=== PATIENT | male | born 1965 | race Caucasian/White ===

== ENCOUNTER 2024-10-29 08:42 | Emergency (ER) | payer MEDICAID, SELFPAY ==
[2024-10-29 08:44] VITALS: BMI 26.6
[2024-10-29 08:57] VITALS: BP 146/94; PULSE 98; RESP 16; TEMP 36.7; O2SAT 99
--- NOTE | 2024-10-29 09:07 | XR_ITS ---
Examination: Ribs, right, with PA chest, 5 views Technique: Chest PA, RIBS AP, RPO, LPO, AP coned lower ribs 5 views Exam date and time: October 29, 2024 0916 hours INDICATIONS: Patient fell 2 days ago with injury to the right chest, right rib pain Findings: Normal heart size No pneumothorax Fracture right seventh rib in the midaxillary line without significant displacement No hemothorax IMPRESSION: Acute fracture with minimal offset right seventh rib
--- NOTE | 2024-10-29 09:10 | PD.EDFALL ---
ED Fall Injury RME/HPI General Chief Complaint: Fall Stated Complaint: FELL IN A HOLE, R) RIBS PAINFUL Time Seen by Provider: 10/29/24 08:57 Source: patient Arrival date/time: 10/29/24 08:42 59-year-old male with a history of hypertension presents to the emergency room with a chief complaint of pain and tenderness to his right sided rib cage. Patient states he was mowing his lawn, tripped on a pothole and fell on his ribs. Mode of arrival: ambulatory Limitations: no limitations Related Data Previous Rx's ?Medication ?Instructions ?Recorded sertraline 50 mg tablet 50 mg PO QDAY #30 tabs 04/23/24 carvedilol 6.25 mg tablet 6.25 mg PO BID #60 tabs 06/04/24 ibuprofen 600 mg tablet 600 mg PO Q8H PRN fever or pain 10/29/24 #20 tabs Allergies Allergy/AdvReac Type Severity Reaction Status Date / Time No Known Allergies Allergy Verified 10/29/24 08:47 Review of Systems Review of Systems Systems Reviewed: All systems reviewed, normal except as documented Constitutional Constitutional: Reports system reviewed and no additional complaints, except as documented, Denies fatigue, Denies fever(s), Denies headache(s) and Denies weakness Eyes Eyes: Reports system reviewed and no additional complaints, except as documented, Denies blurry vision and Denies change in vision ENT Ears, Nose, Mouth, and Throat: Reports system reviewed and no additional complaints, except as documented, Denies otalgia, Denies headache(s), Denies nasal congestion, Denies throat swelling and Denies vertigo Cardiovascular Cardiovascular: Reports system reviewed and no additional complaints, except as documented, Denies chest pain, Denies dyspnea and Denies dyspnea on exertion Respiratory Respiratory: Reports system reviewed and no additional complaints, except as documented, Denies chest congestion, Denies cough, Denies dyspnea, Denies dyspnea on exertion and Denies wheezing Gastrointestinal Gastrointestinal: Reports system reviewed and no additional complaints, except as documented, Denies abdominal pain, Denies cramping, Denies nausea and Denies vomiting Genitourinary Genitourinary: Reports system reviewed and no additional complaints, except as documented, Denies dysuria and Denies hematuria Musculoskeletal Musculoskeletal: Reports system reviewed and no additional complaints, except as documented and Denies back pain Integumentary/Breasts Skin/Breast: Reports system reviewed and no additional complaints, except as documented and Denies wounds Neurologic Neurologic: Reports system reviewed and no additional complaints, except as documented, Denies confusion, Denies headache(s), Denies lack of coordination, Denies vertigo and Denies weakness Psychiatric Psychiatric: Reports system reviewed and no additional complaints, except as documented, Denies anxiety, Denies confusion, Denies depression, Denies paranoia, Denies suicidal ideation and Denies tactile hallucinations Endocrine Endocrine: Reports system reviewed and no additional complaints, except as documented and Denies fatigue Hematologic/Lymphatic Hematologic/Lymphatic: Reports system reviewed and no additional complaints, except as documented and Denies lymphadenopathy Allergic/Immunologic Allergic/Immunologic: Reports system reviewed and no additional complaints, except as documented, Denies throat swelling, Denies urticaria and Denies wheezing ED Exam General Limitations: Present no limitations General appearance: Present alert and in no apparent distress Head Head exam: Present atraumatic Eye Eye exam: Present normal appearance, PERRL and EOMI ENT ENT exam: Present normal exam, normal oropharynx and mucous membranes moist Neck Neck exam: Present normal inspection, full ROM and trachea midline Chest Chest inspection: Present normal inspection, symmetric chest wall rise and tenderness Expanded Chest Exam Trauma: Absent crepitus, laceration, abrasion, wound or penetrating wound Breast: right: tenderness Respiratory Respiratory exam: Present normal lung sounds bilaterally; Absent respiratory distress, wheezes, stridor, accessory muscle use or prolonged expiratory phase Cardiovascular Cardiovascular exam: Present regular rate, normal rhythm and normal heart sounds; Absent tachycardia Abdominal Exam Abdominal exam: Present soft and normal bowel sounds Extremities Exam Extremities exam: Present normal inspection and full ROM Back Exam Back exam: Present normal inspection and full ROM Neurological Exam Neurological exam: Present alert, oriented X3 and CN II-XII intact Psychiatric Psychiatric exam: Present normal affect and normal mood Skin Skin exam: Present warm, dry, intact and normal color Course Quality Measures none Orders Category Date Time Status XR ribs RT min 3V w CXR1V Stat Exams 10/29/24 09:07 Completed HYDROcodone*/APAP 5/325 [Anderson 5/325] Med 10/29/24 10:05 Discontinued 1 tab PO X1 ONE Vital Signs Vital signs: Vital Signs Temperature 98.0 F 10/29/24 08:57 Pulse Rate 98 10/29/24 08:57 Respiratory Rate 16 10/29/24 08:57 Blood Pressure 146/94 H 10/29/24 08:57 Pulse Oximetry (%) 99 10/29/24 08:57 Oxygen Delivery Method Room Air 10/29/24 08:57 O2 saturation 99% within normal limits Fall MDM Narrative MDM Narrative:: 59-year-old male with a history of hypertension presents to the emergency room with a chief complaint of pain and tenderness to his right sided rib cage and pain with inspiration. Patient states he was mowing his lawn, tripped on a pothole and fell on his ribs. Patient is hemodynamically stable. He is not tachycardic not tachypneic and O2 saturation is 99% on room air. Lung sounds are clear bilaterally there is no wheezing there is no abnormal breath sounds. Patient does have some point tenderness to his right sided rib cage with palpation. X-ray of his ribs were completed and show an acute fracture with minimal offset to the right seventh rib. There is no pneumothorax hemothorax or any significant displacement. Patient was discharged and educated to follow-up with primary care provider in the next 24 to 48 hours and return to the emergency room for any evidence of worsening signs or symptoms Patient data External records reviewed:: [facility] previous records Clinical information provided by:: patient Social determinants that could affect healthcare access:: none Patient has the following chronic illnesses:: No chronic illness How is presenting disease/condition affected by chronic disease/condition?: no chronic disease Evaluation data The following diagnostics were reviewed and interpreted by me:: lab results and radiology exam(s) Lab and/or radiology exams considered but not ordered:: N/A Interpretation Summary: X-ray ribs-Findings: Normal heart size No pneumothorax Fracture right seventh rib in the midaxillary line without significant displacement No hemothorax IMPRESSION: Acute fracture with minimal offset right seventh rib Medications / Prescriptions Medications or Prescriptions considered but not ordered:: Medication given Medication administrations:: Medication Administration History Discontinued Medications Hydrocodone Bitart/Acetaminophen (Hydrocodone/Apap 5/325 Tablet) 1 tab PO X1 ONE Stop: 10/29/24 10:06 Last Admin: 10/29/24 10:15 Dose: 1 tab Documented By: BD Medication given Consultations Consultation(s) initiated? (list below): No Diagnosis Fall Differential Diagnosis: other (Rib contusion/rib fracture/pneumothorax/hemothorax) Most likely diagnosis given after review of the tests above:: Rib fracture Admission Indicated Admission indicated?: not indicated Admission Request Was there a request for admission?: No Disposition Plan Disposition Plan: Discharge Discharge Attestation Discharge Attestation: The patient and all family members were given an opportunity to ask questions and understood the discharge instructions. Discharge instructions specifically effects, indications for sooner follow up or return to the emergency department, and the expected course of current diagnosis. Patient condition: Stable Discharge Plan Plan Patient Disposition: HOME (Self Care) Disposition Comment: Stable Prescriptions/Referrals Prescriptions/Med Rec: New ibuprofen 600 mg tablet 600 mg PO Q8H PRN (Reason: fever or pain) Qty: 20 0RF No Action sertraline 50 mg tablet 50 mg PO QDAY Qty: 30 2RF carvedilol 6.25 mg tablet 6.25 mg PO BID Qty: 60 3RF Referrals: No Primary/Family,Physician [Primary Care Provider] - In 1 week Problem List Clinical Impression: Closed rib fracture Patient/Caregiver Discharge Instructions Education Materials: ED Rib Fracture Additional Instructions: Please follow-up with your primary care provider in the next 24 to 48 hours. You have a rib fracture to your seventh rib. Please follow-up with the primary care provider as a referral to an media relations specialist may be indicated for further management. For any evidence of worsening signs or symptoms such as shortness of breath, increased pain, inadequate pain control, fever, cough return to the emergency room. Print Language: Guatemalan Stand Alone Forms: Eunice Award Info., Patient Portal Info Letter PA/RACHEL Supervising Physician RAZIA/RACHEL Supervising Physician: Dr Hernandez
[2024-10-29] MEDS: HYDROcodone/APAP 5/325 TABLET 1 TAB PO (10:15)
== END 2024-10-29 10:17 | disposition home or self-care (01) ==
PROVIDERS: Emergency Provider Emergency Medicine
DX: S22.31XA Fracture of one rib, right side, initial encounter for closed fracture (principal); W17.2XXA Fall into hole, initial encounter; Y93.H2 Activity, gardening and landscaping
CPT/HCPCS: 71101; 99283; A9270

== ENCOUNTER 2024-11-04 13:44 | Outpatient (AMB) | payer MEDICAID, SELFPAY ==
[2024-11-04 13:50] VITALS: BP 116/82; PULSE 107; RESP 16; TEMP 36.8; O2SAT 97; BMI 25.9
--- NOTE | 2024-11-04 13:50 | ACNOTE_ITS ---
Vital Signs 11/04/24 13:50 Height 1.75 m Height Method Stated Weight 79.549 kg Weight Measurement Method Standing Scale BMI 25.9 BP 116/82 Blood Pressure Source Automatic Cuff Blood Pressure Location Left Upper Arm Position Sitting Respiration 16 Pulse 107 H Pulse Source Monitor Temp 98.2 F Temp Source Temporal Artery Scan Pulse Oximetry (%) 97 Oxygen Delivery Method Room Air Allergies/Meds Allergies & Medications Allergies No Known Allergies Allergy (Verified 11/04/24 13:51) Medication Reconciliation sertraline 50 mg tablet 50 mg PO QDAY #30 tabs 04/23/24 [Rx Confirmed 11/04/24] carvedilol 6.25 mg tablet 6.25 mg PO BID #60 tabs 06/04/24 [Rx Confirmed 11/04/24] ibuprofen 600 mg tablet 600 mg PO Q8H PRN fever or pain #20 tabs 10/29/24 [Rx Confirmed 11/04/24] pantoprazole 40 mg tablet,delayed release 40 mg PO QDAY 2 weeks #14 tabs 11/04/24 [Rx] MA Intake Visit Data Collection New Patient or Established: Established Patient (seen at [facility] within 3 years) Seen by Clinical Staff ONLY (RN/MA): No Pain Present Currently: No Pain scale:: 0 Pain Scale Used: Anglin-Ken/Numerical Drying Frame Operator Required: No PCP or OBGYN visit in last 3 months: No Hx Now: No Do You Feel Safe at Home: Yes Authorities Contacted: N/A Smoking Status Smoking Status: Current every day smoker Cessation Counseling Provided: GERMAIN was advised that quitting smoking is the single most important factor to protect the health of themselves and their family. Discussed the benefits of quitting smoking with patient. Encouraged patient to quit smoking and provided Cessation assistance materials and resources. Tobacco Use: Cigarette Years smoked: 20 Are you interested in quitting?: No Immunization / Flu Flu Vaccine in the Last 12 Months: No Flu Vaccine Exclusion Criteria: No Exclusion Criteria Past Medical History Past Medical History NEUROLOGIC: Negative Neurological Disorders, Seizures or Migraine CARDIAC: Positive Hypertension; Negative Cardiac Disorders or Congestive Heart Failure RESPIRATORY: Positive Asthma and Pneumonia; Negative Chronic Obstructive Pulmonary Disease (COPD) GASTROINTESTINAL: Positive Gastrointestinal Disorders, Diverticulitis, Diverticulosis, Hiatal Hernia, Gastroesophageal Reflux Disease and Obesity; Negative Hepatitis GENITOURINARY: Negative Genitourinary Disorders or Renal Disease MUSCULOSKELETAL: Positive Arthritis and Gout ENDOCRINE: Negative Endocrine Disorders, Diabetes Mellitus Type 1 or Diabetes M ellitus Type 2 HEMATOLOGIC: Negative Blood Disorders or Sickle Cell Disease PSYCHO/SOCIAL: Positive Recreational Drug Use (MJ) OTHER HISTORY: Positive Hospitalization (Pneumonia), Mumps and Cancer; Negative Autoimmune Disease, Down Syndrome, Developmental Delay, Shingles, Falls, Blood Transfusions, Blood Transfusion Reaction, Anesthesia Reactions, Organ Transplant, Chemotherapy, Radiation Therapy, Hyperbaric Therapy, MRSA, VRSA, Vancomycin-Resistant Enterococci, Human Immunodeficiency Virus (HIV), Chicken Pox, Measles, Rubella (Italian Measles), Pertussis or Clostridium Difficile Family History FAMILY HISTORY: Positive Family Respiratory Disorders, Family Cardiac Disorders, Family Gastrointestinal Problems, Family Cancer and Family Surgery; Negative Family Psychiatric Problems or Family Anesthesia Reaction Surgical History SURGICAL: Negative Organ Transplant Social History SMOKING STATUS: Smoking status: Current every day smoker PACK YEARS: Pack-Years: 40 SECOND HAND EXPOSURE: second hand exposure: Yes ALCOHOL: Alcohol Intake: Former ALCOHOL FREQUENCY: Alcohol Intake Frequency: holidays/special occasions only HOUSING: Housing: House LIVES WITH: Lives With: Spouse Patient Mindy Perrin Social History Living Situation History Housing: House Housing Other:: Patient lives with Leila Tobacco History Smoking Status: Current every day smoker Packs per Day: 1 Pack-Years: 40 Second Hand Smoke Exposure: Yes Alcohol History Alcohol Intake: Former Alcohol Intake Frequency: holidays/special occasions only Substance Use History Substance Use: marijuana daily Domestic Abuse History Do You Feel Safe at Home: Yes Review of Systems Report any current symptoms Only answer those that you have currently: Past Medical History Past Medical History Have you ever been diagnosed with any of the following: Neurological Problems Seizures: No Migraine: No Cardiology Problems Congestive Heart Failure: No Hypertension: Yes Respiratory Problems Chronic Obstructive Pulmonary Disease (COPD): No Asthma: Yes Pneumonia: Yes Stomache/Intestinal Problems Hepatitis: No Diverticulitis: Yes Diverticulosis: Yes Hiatal Hernia: Yes Gastroesophageal Reflux Disease: Yes Obesity: Yes Genital/Urinary Problems Renal Disease: No Musculoskeletal Problems Arthritis: Yes Gout: Yes Endocrine Problems Diabetes Mellitus Type 1: No Diabetes Mellitus Type 2: No Blood Problems Sickle Cell Disease: No Psychologic Problems Recreational Drug Use: Yes (MJ) Other Problems Hospitalization: Yes (Pneumonia) Autoimmune Disease: No Down Syndrome: No Developmental Delay: No Shingles: No Falls: No Blood Transfusions: No Blood Transfusion Reaction: No Anesthesia Reactions: No Organ Transplant: No Chemotherapy: No Radiation Therapy: No Hyperbaric Therapy: No MRSA: No VRSA: No Vancomycin-Resistant Enterococci: No Human Immunodeficiency Virus (HIV): No Chicken Pox: No Measles: No Mumps: Yes Rubella (Italian Measles): No Pertussis: No Clostridium Difficile: No Cancer: Yes History of Present Illness HPI Narrative This 58 year old male with history of diverticulosis/divericulitis s/p descending colectomy with transverse colon to rectum anastomosis in September [address] Figueroa, hypertension, COPD (no home O2 use), GERD, and substance use (methamphetamine and marijuana) who [facility] referral for abdominal hernia repair, s/p colectomy and dafne removal. The hernia is uncomfortable and non-painful. He has followed up general surgeons Dr Figueroa and Dr Winchester who are unable to surgically repair the hernia, have advised patient seek referral for further management. Patient denies any complaints today, no pain associated with hernia, is able to pass bowel movements without difficulties. Currently <1 PPD, 2 PPD for 40+ years, no alcohol use, occasional marijuana and methamphetamine use. 11/04/24: Patient was seen and examined in the [facility]. Patient came due to failure to get access and referral to general surgeon in [place]. He stated he is frustrated and has been struggling with getting referral for his large ventral hernia seen on the abdomen. Currently, patient denied any pain in the hernia and no signs of obstruction. He is able to pass regular bowel movements and denied any nausea or vomiting. He had a recent fall and ended up getting rib fracture and currently taking ibuprofen for pain management as needed. No gross deformity was seen on the examination. Patient was advised to take Protonix 40 mg along with ibuprofen to prevent formation of stomach ulcers. He was given referral to general surgeon, Dr. Armani jacinto in [place] for evaluation of incisional hernia without obstruction or gangrene and documents were faxed to the clinic. Patient was advised to follow- up in the clinic as needed. Protonix was prescribed. No other refills were given. Review of Systems Review of Systems Systems Reviewed: All systems reviewed, normal except as documented Objective/Exam Narrative Physical exam: GENERAL APPEARANCE: Patient is well-appearing male in no acute distress. HEENT: NC, AT. MMM. EOMI, clear conjunctiva, oropharynx clear. NECK: Supple without lymphadenopathy. No stiffness or restricted ROM. HEART: Sinus tachycardia with regular rhythm, normal S1/S2, no m/r/g LUNGS: CTAB, moving air well. No crackles or wheezes are heard. ABDOMEN: Soft, large ventral hernia seen on the abdomen with active bowel sounds. BACK: No CVAT, no obvious deformity. EXTREMITIES: Without cyanosis, clubbing or edema. NEUROLOGICAL: Grossly nonfocal. Alert and oriented, moving all 4 extremities. CN not formally tested but appear grossly intact. Observed to ambulate with normal gait. Skin: Warm and dry without any rash. Psych: Appropriate mood and affect Assessment & Plan Diagnosis / Problem List (1) Incisional hernia without obstruction or gangrene: Status: Acute Assessment & Plan: ?This 58 year old male with history of diverticulosis/divericulitis s/p descending colectomy with transverse colon to rectum anastomosis in September [address] Figueroa, hypertension, COPD (no home O2 use), GERD, and substance use (methamphetamine and marijuana) came to the clinic for and has a referral for general surgery due to failure to get evaluated by his surgeon at [place]. ? Patient reported that he had a ground-level fall and ended up getting rib fracture and has been taking ibuprofen which has been helpful. ? Examination revealed large bulging nontender ventral hernia with active bowel sounds seen on the abdomen. Plan: ? Patient is referred to general surgeon, Dr. Armani Amador MD in [place] for further evaluation ? Recommended to continue hydration, avoid constipation and take Tylenol as needed (2) Closed rib fracture: Status: Acute Qualifiers: Fracture healing: with routine healing Laterality: right Rib fracture type: single rib Assessment & Plan: ? Patient recently had a ground-level fall ended up having a rib fracture and was already taking ibuprofen which is helping Plan: ? Recommended to take Protonix 40 mg for 2 weeks to prevent formation of gastric ulcer due to high dose ibuprofen usage ? Follow-up recommended as needed Patient was seen and discussed with attending physician, Dr.Watanakunakorn Dr. Dave MD, PGY 2 Orders: Referrals General surgery K43.2 - Incisional hernia without obstruction or gangrene Additional Assessment Internal Medicine Attending Note: Case discussed with and agree with note and management plan of Resident Physician as per Resident's Note above. Issues of concern for present visit are as follows: Follow-up health visit. Patient previously seen for ventral hernia which though nonpainful is uncomfortable. He has been referred to local general surgeons who are unable to surgically repair the hernia. We have tried to refer the patient to [place] and have not been successful. No signs of obstruction. Did have a recent fall with a rib fracture, taking ibuprofen for pain management. We will try making a referral to Dr. Amador in [place]. If this is not successful, we will have to try to find an office in [place]. Plan as noted above. Lavelle Smallwood MD Physician Billing Established Patient Established Patient: E/M Level 3-CPT 58269 Office Procedures [facility] Level of Care Nursing/Assessment Patient Status: Established Patient Nursing Assessment/Reassessment: Medication Reconciliation, Update PMH in EMR and Vital Signs Coordination of Care: Complex Care and Chronic Disease 1-5, Consent,records obtained, informed consent, Education Simp Pt/Fam, 1 Ins Authorization, Ref for ancillary service and Staff clarify orders Established Patient Charge Established Patient Point Assignment: 120 Established Patient Point Charge: EP Level 4 (120-155)
== END 2024-11-04 15:29 | disposition home or self-care (01) ==
LOC: HODAHC 13:44
PROVIDERS: Supervising Provider Internal Medicine; Visit Provider Student in an Organized Health Care Education/Training Program
DX: K43.2 Incisional hernia without obstruction or gangrene (principal); S22.31XA Fracture of one rib, right side, initial encounter for closed fracture; W18.30XA Fall on same level, unspecified, initial encounter
CPT/HCPCS: 99214; G0463

== ENCOUNTER 2024-11-18 14:14 | Outpatient (AMB) | payer MEDICAID, SELFPAY ==
[2024-11-18 14:21] VITALS: BP 148/88; PULSE 98; RESP 18; TEMP 36.6; O2SAT 98; BMI 26.9
--- NOTE | 2024-11-18 14:21 | ACNOTE_ITS ---
Vital Signs 11/18/24 14:21 Height 1.75 m Height Method Stated Weight 82.554 kg Weight Measurement Method Standing Scale BMI 26.9 BP 148/88 H Blood Pressure Source Automatic Cuff Blood Pressure Location Left Upper Arm Position Sitting Respiration 18 Pulse 98 Pulse Source Monitor Temp 97.8 F Temp Source Oral Pulse Oximetry (%) 98 Oxygen Delivery Method Room Air Allergies/Meds Allergies & Medications Allergies No Known Allergies Allergy (Verified 11/18/24 14:22) Medication Reconciliation sertraline 50 mg tablet 50 mg PO QDAY #30 tabs 04/23/24 [Rx Confirmed 11/18/24] carvedilol 6.25 mg tablet 6.25 mg PO BID #60 tabs 06/04/24 [Rx Confirmed 11/18/24] ibuprofen 600 mg tablet 600 mg PO Q8H PRN fever or pain #20 tabs 10/29/24 [Rx Confirmed 11/18/24] albuterol sulfate 90 mcg/actuation aerosol inhaler 1 inh inhalation QID PRN shortness of breath or wheezing #8.5 grams 11/18/24 [Rx] MA Intake Visit Data Collection New Patient or Established: Established Patient (seen at [facility] within 3 years) Seen by Clinical Staff ONLY (RN/MA): No Pain Present Currently: No Pain scale:: 0 Pain Scale Used: [employer] Field Technician Required: No PCP or OBGYN visit in last 3 months: Yes Hx Now: No Do You Feel Safe at Home: Yes Smoking Status Smoking Status: Current every day smoker Cessation Counseling Provided: GERMAIN was advised that quitting smoking is the single most important factor to protect the health of themselves and their family. Discussed the benefits of quitting smoking with patient. Encouraged patient to quit smoking and provided Cessation assistance materials and resources. Tobacco Use: Cigarette Years smoked: 10 Are you interested in quitting?: No Immunization / Flu Flu Vaccine in the Last 12 Months: No Flu Vaccine Exclusion Criteria: No Exclusion Criteria Past Medical History Past Medical History NEUROLOGIC: Negative Neurological Disorders, Seizures or Migraine CARDIAC: Positive Hypertension; Negative Cardiac Disorders or Congestive Heart Failure RESPIRATORY: Positive Asthma and Pneumonia; Negative Chronic Obstructive Pulmonary Disease (COPD) GASTROINTESTINAL: Positive Gastrointestinal Disorders, Diverticulitis, Diverticulosis, Hiatal Hernia, Gastroesophageal Reflux Disease and Obesity; Negative Hepatitis GENITOURINARY: Negative Genitourinary Disorders or Renal Disease MUSCULOSKELETAL: Positive Arthritis and Gout ENDOCRINE: Negative Endocrine Disorders, Diabetes Mellitus Type 1 or Diabetes Mellitus Type 2 HEMATOLOGIC: Negative Blood Disorders or Sickle Cell Disease PSYCHO/SOCIAL: Positive Recreational Drug Use (MJ) OTHER HISTORY: Positive Hospitalization (Pneumonia), Mumps and Cancer; Negative Autoimmune Disease, Down Syndrome, Developmental Delay, Shingles, Falls, Blood Transfusions, Blood Transfusion Reaction, Anesthesia Reactions, Organ Transplant, Chemotherapy, Radiation Therapy, Hyperbaric Therapy, MRSA, VRSA, Vancomycin-Resistant Enterococci, Human Immunodeficiency Virus (HIV), Chicken Pox, Measles, Rubella (Maltese Measles), Pertussis or Clostridium Difficile Family History FAMILY HISTORY: Positive Family Respiratory Disorders, Family Cardiac Disorders, Family Gastrointestinal Problems, Family Cancer and Family Surgery; Negative Family Psychiatric Problems or Family Anesthesia Reaction Surgical History SURGICAL: Negative Organ Transplant Social History SMOKING STATUS: Smoking status: Current every day smoker PACK YEARS: Pack-Years: 40 SECOND HAND EXPOSURE: second hand exposure: Yes ALCOHOL: Alcohol Intake: Former ALCOHOL FREQUENCY: Alcohol Intake Frequency: holidays/special occasions only HOUSING: Housing: House LIVES WITH: Lives With: Spouse Patient Portal Questionaires PHQ-9 PHQ-2 Over the last 2 weeks, how often have you been bothered by any of the following problems? 1. Little interest or pleasure in doing things: not at all 2. Feeling down, depressed, or hopeless: not at all Total score: 0 Depression screen completed yes Social History Living Situation History Housing: House Housing Other:: Patient lives with Leila Venegas Tobacco History Smoking Status: Current every day smoker Packs per Day: 1 Pack-Years: 40 Second Hand Smoke Exposure: Yes Alcohol History Alcohol Intake: Former Alcohol Intake Frequency: holidays/special occasions only Substance Use History Substance Use: marijuana daily Domestic Abuse History Do You Feel Safe at Home: Yes Review of Systems Report any current symptoms Only answer those that you have currently: Past Medical History Past Medical History Have you ever been diagnosed with any of the following: Neurological Problems Seizures: No Migraine: No Cardiology Problems Congestive Heart Failure: No Hypertension: Yes Respiratory Problems Chronic Obstructive Pulmonary Disease (COPD): No Asthma: Yes Pneumonia: Yes Stomache/Intestinal Problems Hepatitis: No Diverticulitis: Yes Diverticulosis: Yes Hiatal Hernia: Yes Gastroesophageal Reflux Disease: Yes Obesity: Yes Genital/Urinary Problems Renal Disease: No Musculoskeletal Problems Arthritis: Yes Gout: Yes Endocrine Problems Diabetes Mellitus Type 1: No Diabetes Mellitus Type 2: No Blood Problems Sickle Cell Disease: No Psychologic Problems Recreational Drug Use: Yes (MJ) Other Problems Hospitalization: Yes (Pneumonia) Autoimmune Disease: No Down Syndrome: No Developmental Delay: No Shingles: No Falls: No Blood Transfusions: No Blood Transfusion Reaction: No Anesthesia Reactions: No Organ Transplant: No Chemotherapy: No Radiation Therapy: No Hyperbaric Therapy: No MRSA: No VRSA: No Vancomycin-Resistant Enterococci: No Human Immunodeficiency Virus (HIV): No Chicken Pox: No Measles: No Mumps: Yes Rubella (Maltese Measles): No Pertussis: No Clostridium Difficile: No Cancer: Yes History of Present Illness HPI Narrative This 58 year old male with history of diverticulosis/divericulitis s/p descending colectomy with transverse colon to rectum anastomosis in September [address] Figueroa, hypertension, COPD (no home O2 use), GERD, and substance use (methamphetamine and marijuana) who presented to the [facility] seeking general surgery referral for abdominal hernia repair, s/p colectomy and dafne removal. The hernia is uncomfortable and non-painful. He has followed up general surgeons Dr Figueroa and Dr Winchester who are unable to surgically repair the hernia, have advised patient seek referral for further management. Patient denies any complaints today, no pain associated with hernia, is able to pass bowel movements without difficulties. Currently <1 PPD, 2 PPD for 40+ years, no alcohol use, occasional marijuana and methamphetamine use. 11/04/24: Patient was seen and examined in the [facility]. Patient came due to failure to get access and referral to general surgeon in [place]. He stated he is frustrated and has been struggling with getting referral for his large ventral hernia seen on the abdomen. Currently, patient denied any pain in the hernia and no signs of obstruction. He is able to pass regular bowel movements and denied any nausea or vomiting. He had a recent fall and ended up getting rib fracture and currently taking ibuprofen for pain management as needed. No gross deformity was seen on the examination. Patient was advised to take Protonix 40 mg along with ibuprofen to prevent formation of stomach ulcers. He was given referral to general surgeon, Dr. Armani Amador in [place] for evaluation of incisional hernia without obstruction or gangrene and documents were faxed to the clinic. Patient was advised to follow- up in the clinic as needed. Protonix was prescribed. No other refills were given. 11/18/24: Patient was seen and examined in the clinic. Patient was feeling well and reported to feel frustrated due to the process of denial for referral to general surgery for evaluation of his ventral hernia. He reported that he does not have any disturbance in the bowel movements or pain but he wants to get evaluated in have elective hernia reduction. Surgeon, Dr. Cao was contacted and he stated that we can do referral for his clinic and once insurance will do authorization he will be happy to see the patient. In case insurance declines we will try for another surgeon, Dr. Robin in time otherwise we will be trying out in [place] for other specialist. He was found to have mild wheezing on auscultation therefore albuterol inhaler was given as needed due to history of asthma. Follow-up in a week. Pending insurance authorization for referral. Review of Systems Review of Systems Systems Reviewed: All systems reviewed, normal except as documented Objective/Exam Narrative Physical exam: GENERAL APPEARANCE: Patient is well-appearing male in no acute distress. HEENT: NC, AT. MMM. EOMI, clear conjunctiva, oropharynx clear. NECK: Supple without lymphadenopathy. No stiffness or restricted ROM. HEART: Sinus tachycardia with regular rhythm, normal S1/S2, no m/r/g LUNGS: CTAB, moving air well. Mild wheezing heard on ausc ABDOMEN: Soft, large ventral hernia seen on the abdomen with active bowel sounds. BACK: No CVAT, no obvious deformity. EXTREMITIES: Without cyanosis, clubbing or edema. NEUROLOGICAL: Grossly nonfocal. Alert and oriented, moving all 4 extremities. CN not formally tested but appear grossly intact. Observed to ambulate with normal gait. Skin: Warm and dry without any rash. Psych: Appropriate mood and affect Assessment & Plan Diagnosis / Problem List (1) Asthma: Status: Acute Qualifiers: Asthma complication type: uncomplicated Asthma persistence: intermittent Asthma severity: mild Qualified Code(s): J45.20 - Mild intermittent asthma, uncomplicated Assessment & Plan: ? Patient does have a history of chronic asthma and related to allergies. He is not in acute asthmatic state. ? Patient appeared to have mild wheezing on examination Plan: ? Recommended to take albuterol inhaler as needed for mild wheezing (2) Incisional hernia without obstruction or gangrene: Status: Acute Assessment & Plan: ?This 58 year old male with history of diverticulosis/divericulitis s/p descending colectomy with transverse colon to rectum anastomosis in September [address] Figueroa, hypertension, COPD (no home O2 use), GERD, and substance use (methamphetamine and marijuana) came to the clinic due to failure to get evaluated by Surgeon ? Examination revealed large bulging nontender ventral hernia with active bowel sounds seen on the abdomen. Plan: ? Referral given for surgeon, Dr. Cao for further evaluation ? Insurance declined evaluation for Dr. Armani Amador MD -Pending insurance auth for referral - F/U in a week Patient was seen and discussed with attending physician, Dr.Watanakunakorn Dr. Dave MD, PGY 2 Orders: Referrals General surgery K43.2 - Incisional hernia without obstruction or gangrene Additional Assessment Internal Medicine Attending Note: Case discussed with and agree with note and management plan of Resident Physician as per Resident's Note above. Issues of concern for present visit are as follows: Follow-up visit. Has still not been able to see surgeon for repair of ventral hernia. Resident physician contacted local general surgeon Dr. Cao who states he will take the patient. We will try to get insurance approval. On examination, mild wheezing, history of asthma. Patient given albuterol inhaler for as needed use. Lavelle Smallwood MD Physician Billing Established Patient Established Patient: E/M Level 3-CPT 43380 Office Procedures [facility] Level of Care Nursing/Assessment Patient Status: Established Patient Nursing Assessment/Reassessment: Medication Reconciliation, Update PMH in EMR and Vital Signs Coordination of Care: Complex Care and Chronic Disease 1-5, Consent,records obtained, informed consent, Education Simp Pt/Fam, Results/Orders obtained and Staff clarify orders Established Patient Charge Established Patient Point Assignment: 90 Established Patient Point Charge: EP Level 3 (80-115)
== END 2024-11-18 14:43 | disposition home or self-care (01) ==
LOC: HODAHC 14:14
PROVIDERS: Supervising Provider Internal Medicine; Visit Provider Student in an Organized Health Care Education/Training Program
DX: K43.2 Incisional hernia without obstruction or gangrene (principal); J45.20 Mild intermittent asthma, uncomplicated
CPT/HCPCS: 99213; G0463

== ENCOUNTER 2024-12-10 10:46 | Outpatient (AMB) | payer MEDICAID, SELFPAY ==
[2024-12-10 10:46] VITALS: BP 143/96; PULSE 104; RESP 18; TEMP 36.6; O2SAT 97; BMI 26.2
--- NOTE | 2024-12-10 10:46 | ACNOTE_ITS ---
Vital Signs 12/10/24 10:46 Height 1.75 m Height Method Stated Weight 80.456 kg Weight Measurement Method Standing Scale BMI 26.2 BP 143/96 H Blood Pressure Source Automatic Cuff Blood Pressure Location Right Upper Arm Position Sitting Respiration 18 Pulse 104 H Pulse Source Monitor Temp 97.8 F Temp Source Temporal Artery Scan Pulse Oximetry (%) 97 Oxygen Delivery Method Room Air Allergies/Meds Allergies & Medications Allergies No Known Allergies Allergy (Verified 12/10/24 10:47) Medication Reconciliation sertraline 50 mg tablet 50 mg PO QDAY #30 tabs 04/23/24 [Rx Confirmed 12/10/24] carvedilol 6.25 mg tablet 6.25 mg PO BID #60 tabs 06/04/24 [Rx Confirmed 12/10/24] ibuprofen 600 mg tablet 600 mg PO Q8H PRN fever or pain #20 tabs 10/29/24 [Rx Confirmed 12/10/24] albuterol sulfate 90 mcg/actuation aerosol inhaler 1 inh inhalation QID PRN shortness of breath or wheezing #8.5 grams 11/18/24 [Rx Confirmed 12/10/24] MA Intake Visit Data Collection New Patient or Established: Established Patient (seen at [facility] within 3 years) Seen by Clinical Staff ONLY (RN/MA): No Pain Present Currently: No Pain scale:: 0 Pain Scale Used: [place]-Ken/Numerical Emulsion Coater Required: No PCP or OBGYN visit in last 3 months: No Hx Now: No Do You Feel Safe at Home: Yes Authorities Contacted: N/A Smoking Status Smoking Status: Current every day smoker Cessation Counseling Provided: GERMAIN was advised that quitting smoking is the single most important factor to protect the health of themselves and their family. Discussed the benefits of quitting smoking with patient. Encouraged patient to quit smoking and provided Cessation assistance materials and resources. Tobacco Use: Cigarette Years smoked: 10 Are you interested in quitting?: No Immunization / Flu Flu Vaccine in the Last 12 Months: No Flu Vaccine Exclusion Criteria: No Exclusion Criteria Past Medical History Past Medical History NEUROLOGIC: Negative Neurological Disorders, Seizures or Migraine CARDIAC: Positive Hypertension; Negative Cardiac Disorders or Congestive Heart Failure RESPIRATORY: Positive Asthma and Pneumonia; Negative Chronic Obstructive Pulmonary Disease (COPD) GASTROINTESTINAL: Positive Gastrointestinal Disorders, Diverticulitis, Diverticulosis, Hiatal Hernia, Gastroesophageal Reflux Disease and Obesity; Negative Hepatitis GENITOURINARY: Negative Genitourinary Disorders or Renal Disease MUSCULOSKELETAL: Positive Arthritis and Gout ENDOCRINE: Negative Endocrine Disorders, Diabetes Mellitus Type 1 or Diabetes Mellitus Type 2 HEMATOLOGIC: Negative Blood Disorders or Sickle Cell Disease PSYCHO/SOCIAL: Positive Recreational Drug Use (MJ) OTHER HISTORY: Positive Hospitalization (Pneumonia), Mumps and Cancer; Negative Autoimmune Disease, Down Syndrome, Developmental Delay, Shingles, Falls, Blood Transfusions, Blood Transfusion Reaction, Anesthesia Reactions, Organ Transplant, Chemotherapy, Radiation Therapy, Hyperbaric Therapy, MRSA, VRSA, Vancomycin-Resistant Enterococci, Human Immunodeficiency Virus (HIV), Chicken Pox, Measles, Rubella (Albanian Measles), Pertussis or Clostridium Difficile Family History FAMILY HISTORY: Positive Family Respiratory Disorders, Family Cardiac Disorders, Family Gastrointestinal Problems, Family Cancer and Family Surgery; Negative Family Psychiatric Problems or Family Anesthesia Reaction Surgical History SURGICAL: Negative Organ Transplant Social History SMOKING STATUS: Smoking status: Current every day smoker PACK YEARS: Pack-Years: 40 SECOND HAND EXPOSURE: second hand exposure: Yes ALCOHOL: Alcohol Intake: Former ALCOHOL FREQUENCY: Alcohol Intake Frequency: holidays/special occasions only HOUSING: Housing: House LIVES WITH: Lives With: Spouse Patient Portal Questionaires PHQ-9 PHQ-2 Over the last 2 weeks, how often have you been bothered by any of the following problems? 1. Little interest or pleasure in doing things: not at all Social History Living Situation History Housing: House Housing Other:: Patient lives with Leila Tobacco History Smoking Status: Current every day smoker Packs per Day: 1 Pack-Years: 40 Second Hand Smoke Exposure: Yes Alcohol History Alcohol Intake: Former Alcohol Intake Frequency: holidays/special occasions only Substance Use History Substance Use: marijuana daily Domestic Abuse History Do You Feel Safe at Home: Yes Review of Systems Report any current symptoms Only answer those that you have currently: Past Medical History Past Medical History Have you ever been diagnosed with any of the following: Neurological Problems Seizures: No Migraine: No Cardiology Problems Congestive Heart Failure: No Hypertension: Yes Respiratory Problems Chronic Obstructive Pulmonary Disease (COPD): No Asthma: Yes Pneumonia: Yes Stomache/Intestinal Problems Hepatitis: No Diverticulitis: Yes Diverticulosis: Yes Hiatal Hernia: Yes Gastroesophageal Reflux Disease: Yes Obesity: Yes Genital/Urinary Problems Renal Disease: No Musculoskeletal Problems Arthritis: Yes Gout: Yes Endocrine Problems Diabetes Mellitus Type 1: No Diabetes Mellitus Type 2: No Blood Problems Sickle Cell Disease: No Psychologic Problems Recreational Drug Use: Yes (MJ) Other Problems Hospitalization: Yes (Pneumonia) Autoimmune Disease: No Down Syndrome: No Developmental Delay: No Shingles: No Falls: No Blood Transfusions: No Blood Transfusion Reaction: No Anesthesia Reactions: No Organ Transplant: No Chemotherapy: No Radiation Therapy: No Hyperbaric Therapy: No MRSA: No VRSA: No Vancomycin-Resistant Enterococci: No Human Immunodeficiency Virus (HIV): No Chicken Pox: No Measles: No Mumps: Yes Rubella (Albanian Measles): No Pertussis: No Clostridium Difficile: No Cancer: Yes History of Present Illness HPI Narrative This 58 year old male with history of diverticulosis/divericulitis s/p descending colectomy with transverse colon to rectum anastomosis in September [address] Figueroa, hypertension, COPD (no home O2 use), GERD, and substance use (methamphetamine and marijuana) who presented to the [facility] seeking general surgery referral for abdominal hernia repair, s/p colectomy and dafne removal. The hernia is uncomfortable and non-painful. He has followed up general surgeons Dr Figueroa and Dr Winchester who are unable to surgically repair the hernia, have advised patient seek referral for further management. Patient denies any complaints today, no pain associated with hernia, is able to pass bowel movements without difficulties. Currently <1 PPD, 2 PPD for 40+ years, no alcohol use, occasional marijuana and methamphetamine use. 11/04/24: Patient was seen and examined in the [facility]. Patient came due to failure to get access and referral to general surgeon in [place]. He stated he is frustrated and has been struggling with getting referral for his large ventral hernia seen on the abdomen. Currently, patient denied any pain in the hernia and no signs of obstruction. He is able to pass regular bowel movements and denied any nausea or vomiting. He had a recent fall and ended up getting rib fracture and currently taking ibuprofen for pain management as needed. No gross deformity was seen on the examination. Patient was advised to take Protonix 40 mg along with ibuprofen to prevent formation of stomach ulcers. He was given referral to general surgeon, Dr. Armani Amador in [place] for evaluation of incisional hernia without obstruction or gangrene and documents were faxed to the clinic. Patient was advised to follow- up in the clinic as needed. Protonix was prescribed. No other refills were given. 11/18/24: Patient was seen and examined in the clinic. Patient was feeling well and reported to feel frustrated due to the process of denial for referral to general surgery for evaluation of his ventral hernia. He reported that he does not have any disturbance in the bowel movements or pain but he wants to get evaluated in have elective hernia reduction. Surgeon, Dr. Cao was contacted and he stated that we can do referral for his clinic and once insurance will do authorization he will be happy to see the patient. In case insurance declines we will try for another surgeon, Dr. Robin in time otherwise we will be trying out in [place] for other specialist. He was found to have mild wheezing on auscultation therefore albuterol inhaler was given as needed due to history of asthma. Follow-up in a week. Pending insurance authorization for referral. 12/10/24: The patient was seen and examined today. He presented for a follow-up visit; however, it was noted that no appointment had been scheduled with [facility]. The patient informed us that insurance authorization was approved, and he had intended to schedule an appointment with Dr. Cao but has not yet done so, although he still plans to. The patient denied any pain, nausea, vomiting, constipation, or diarrhea. He reported feeling well overall, with his only concern being cosmetic discomfort. Patient again was advised to make an appointment [facility] and referral was send again. all questions and concers were adressed, we will see the patient in clinic after general surgery appointment to follow up with further plan. BP was on a upper side, however patient denies any Hx of HTN and mainly related it with anxiety related to doctors appointment. He denied any headache, vision changes, CP or SOB. He was advised to monitor BP at home, and contact us if it continues to run above 130-140. Patient care was discussed with attending physician Dr. Cl Moss MD PGY-2 I have carefully reviewed this document. Due to imperfections in the voice software, there could be grammatical errors including phonetic/typographic errors. This in no way compromises the medical care the patient is receiving Review of Systems Review of Systems Narrative Review of Systems: Narrative Review of Systems: GENERAL: Denies fevers/chills or diaphoresis. HEENT: Denies headache, Denies visual/hearing changes NEURO: Denies unusual weakness or difficulty speaking. CARDIO: Denies chest pain PULM: Denies SOB GI: Denies abdominal pain, nausea, vomiting, diarrhea, or constipation MSK/EXT/SKIN: Denies joint/skeletal/muscle pain The rest of review of system is otherwise negative except what is mentioned above Objective/Exam Narrative Physical exam: GENERAL APPEARANCE: Patient is well-appearing male in no acute distress. HEENT: NC, AT. MMM. EOMI, clear conjunctiva, oropharynx clear. NECK: Supple without lymphadenopathy. No stiffness or restricted ROM. HEART: Sinus tachycardia with regular rhythm, normal S1/S2, no m/r/g LUNGS: CTAB, moving air well. Mild wheezing heard on ausc ABDOMEN: Soft, large ventral hernia seen on the abdomen with active bowel sounds. BACK: No CVAT, no obvious deformity. EXTREMITIES: Without cyanosis, clubbing or edema. NEUROLOGICAL: Grossly nonfocal. Alert and oriented, moving all 4 extremities. CN not formally tested but appear grossly intact. Observed to ambulate with normal gait. Skin: Warm and dry without any rash. Psych: Appropriate mood and affect Assessment & Plan Diagnosis / Problem List (1) Incisional hernia without obstruction or gangrene: Status: Acute Plan: This 58 year old male with history of diverticulosis/divericulitis s/p descending colectomy with transverse colon to rectum anastomosis in September [address] Figueroa, hypertension, COPD (no home O2 use), GERD, and substance use (methamphetamine and marijuana) came to the clinic due to failure to get evaluated by Surgeon, Examination revealed large bulging nontender ventral hernia with active bowel sounds seen on the abdomen. On last visit patient was referred to , however never made an appointment. Insurance authorization got approved, reffereal was send again, Patient will make an appontment With Dr. Cao Referrals General surgery (2) Asthma: Status: Acute Qualifiers: Asthma severity: mild Asthma persistence: intermittent Asthma comp lication type: uncomplicated Qualified Code(s): J45.20 - Mild intermittent asthma, uncomplicated Assessment & Plan: ? Patient does have a history of chronic asthma and related to allergies. He is not in acute asthmatic state. ? Patient appeared to have mild wheezing on examination Plan: Plan: ? Recommended to take albuterol inhaler as needed for mild wheezing Orders: Referrals General surgery Office Procedures [facility] Level of Care Nursing/Assessment Patient Status: Established Patient Nursing Assessment/Reassessment: Medication Reconciliation, Update PMH in EMR and Vital Signs Coordination of Care: Complex Care and Chronic Disease 1-5, Consent,records obtained, informed consent, Education Simp Pt/Fam and Staff clarify orders Established Patient Charge Established Patient Point Assignment: 85 Established Patient Point Charge: EP Level 3 (80-115)
== END 2024-12-10 11:10 | disposition home or self-care (01) ==
LOC: HODAHC 10:46
PROVIDERS: PCP Student in an Organized Health Care Education/Training Program; Referring Provider Student in an Organized Health Care Education/Training Program; Supervising Provider Internal Medicine; Visit Provider Student in an Organized Health Care Education/Training Program
DX: K43.2 Incisional hernia without obstruction or gangrene (principal); Z90.49 Acquired absence of other specified parts of digestive tract; I10 Essential (primary) hypertension; J44.9 Chronic obstructive pulmonary disease, unspecified; K21.9 Gastro-esophageal reflux disease without esophagitis
CPT/HCPCS: 99213; G0463

== ENCOUNTER 2024-12-25 13:46 | Outpatient (AMB) | payer MEDICAID, SELFPAY ==
[2024-12-25 14:01] VITALS: BP 145/97; PULSE 94; RESP 18; TEMP 36.6; O2SAT 97; BMI 26.4
--- NOTE | 2024-12-25 14:01 | PD.RESCLINIC ---
Vital Signs 12/25/24 14:01 Height 1.75 m Height Method Stated Weight 80.966 kg Weight Measurement Method Standing Scale BMI 26.4 BP 145/97 H Blood Pressure Source Automatic Cuff Blood Pressure Location Right Upper Arm Position Sitting Respiration 18 Pulse 94 Pulse Source Monitor Temp 97.9 F Temp Source Oral Pulse Oximetry (%) 97 Oxygen Delivery Method Room Air Allergies/Meds Allergies & Medications Allergies No Known Allergies Allergy (Verified 12/25/24 14:02) Medication Reconciliation sertraline 50 mg tablet 50 mg PO QDAY #30 tabs 04/23/24 [Rx Confirmed 12/25/24] carvedilol 6.25 mg tablet 6.25 mg PO BID #60 tabs 06/04/24 [Rx Confirmed 12/25/24] ibuprofen 600 mg tablet 600 mg PO Q8H PRN fever or pain #20 tabs 10/29/24 [Rx Confirmed 12/25/24] albuterol sulfate 90 mcg/actuation aerosol inhaler 1 inh inhalation QID PRN shortness of breath or wheezing #8.5 grams 11/18/24 [Rx Confirmed 12/25/24] MA Intake Visit Data Collection New Patient or Established: Established Patient (seen at [facility] within 3 years) Seen by Clinical Staff ONLY (RN/MA): No Pain Present Currently: No Pain scale:: 0 Pain Scale Used: Anglin-Ken/Numerical Pear Picker Required: No PCP or OBGYN visit in last 3 months: Yes Hx Now: No Do You Feel Safe at Home: Yes Authorities Contacted: N/A Smoking Status Smoking Status: Current every day smoker Cessation Counseling Provided: GERMAIN was advised that quitting smoking is the single most important factor to protect the health of themselves and their family. Discussed the benefits of quitting smoking with patient. Encouraged patient to quit smoking and provided Cessation assistance materials and resources. Tobacco Use: Cigarette Years smoked: 40 Are you interested in quitting?: No Immunization / Flu Flu Vaccine in the Last 12 Months: No Flu Vaccine Exclusion Criteria: Refused by Patient Past Medical History Past Medical History NEUROLOGIC: Negative Neurological Disorders, Seizures or Migraine CARDIAC: Positive Hypertension; Negative Cardiac Disorders or Congestive Heart Failure RESPIRATORY: Positive Asthma and Pneumonia; Negative Chronic Obstructive Pulmonary Disease (COPD) GASTROINTESTINAL: Positive Gastrointestinal Disorders, Diverticulitis, Diverticulosis, Hiatal Hernia, Gastroesophageal Reflux Disease and Obesity; Negative Hepatitis GENITOURINARY: Negative Genitourinary Disorders or Renal Disease MUSCULOSKELETAL: Positive Arthritis and Gout ENDOCRINE: Negative Endocrine Disorders, Diabetes Mellitus Type 1 or Diabetes Mellitus Type 2 HEMATOLOGIC: Negative Blood Disorders or Sickle Cell Disease PSYCHO/SOCIAL: Positive Recreational Drug Use (MJ) OTHER HISTORY: Positive Hospitalization (Pneumonia), Mumps and Cancer; Negative Autoimmune Disease, Down Syndrome, Developmental Delay, Shingles, Falls, Blood Transfusions, Blood Transfusion Reaction, Anesthesia Reactions, Organ Transplant, Chemotherapy, Radiation Therapy, Hyperbaric Therapy, MRSA, VRSA, Vancomycin-Resistant Enterococci, Human Immunodeficiency Virus (HIV), Chicken Pox, Measles, Rubella (Pan[place]ian Measles), Pertussis or Clostridium Difficile Family History FAMILY HISTORY: Positive Family Respiratory Disorders, Family Cardiac Disorders, Family Gastrointestinal Problems, Family Cancer and Family Surgery; Negative Family Psychiatric Problems or Family Anesthesia Reaction Surgical History SURGICAL: Negative Organ Transplant Social History SMOKING STATUS: Smoking status: Current every day smoker PACK YEARS: Pack-Years: 40 SECOND HAND EXPOSURE: second hand exposure: Yes ALCOHOL: Alcohol Intake: Former ALCOHOL FREQUENCY: Alcohol Intake Frequency: holidays/special occasions only HOUSING: Housing: House LIVES WITH: Lives With: Spouse Patient Portal Questionaires PHQ-9 PHQ-2 Over the last 2 weeks, how often have you been bothered by any of the following problems? 1. Little interest or pleasure in doing things: not at all 2. Feeling down, depressed, or hopeless: not at all Total score: 0 PHQ-9 3. Trouble falling or staying asleep, or sleeping too much: Not at all 4. Feeling tired or having little energy: Not at all 5. Poor appetite or overeating: Not at all 6. Feeling bad about yourself - or that you are a failure or have let yourself or your family down: Not at all 7. Trouble concentrating on things, such as reading the newspaper or watching television: Not at all 8. Moving or speaking so slowly that other people could have noticed? - Or the opposite - being so fidgety or restless that you have been moving around a lot more than usual: not at all 9. Thoughts that you would be better off or of hurting yourself in some way: Not at all Total score: 0 Source: Developed by Drs. Juan Herzog, Sherlyn Belle, Daniel Nelson and colleagues, with an educational ron from [employer]. Depression screen completed yes Social History Living Situation History Housing: House Housing Other:: Patient lives with , Leila Tobacco History Smoking Status: Current every day smoker Packs per Day: 1 Pack-Years: 40 Second Hand Smoke Exposure: Yes Alcohol History Alcohol Intake: Former Alcohol Intake Frequency: holidays/special occasions only Substance Use History Substance Use: marijuana daily Domestic Abuse History Do You Feel Safe at Home: Yes Review of Systems Report any current symptoms Only answer those that you have currently: Past Medical History Past Medical History Have you ever been diagnosed with any of the following: Neurological Problems Seizures: No Migraine: No Cardiology Problems Congestive Heart Failure: No Hypertension: Yes Respiratory Problems Chronic Obstructive Pulmonary Disease (COPD): No Asthma: Yes Pneumonia: Yes Stomache/Intestinal Problems Hepatitis: No Diverticulitis: Yes Diverticulosis: Yes Hiatal Hernia: Yes Gastroesophageal Reflux Disease: Yes Obesity: Yes Genital/Urinary Problems Renal Disease: No Musculoskeletal Problems Arthritis: Yes Gout: Yes Endocrine Problems Diabetes Mellitus Type 1: No Diabetes Mellitus Type 2: No Blood Problems Sickle Cell Disease: No Psychologic Problems Recreational Drug Use: Yes (MJ) Other Problems Hospitalization: Yes (Pneumonia) Autoimmune Disease: No Down Syndrome: No Developmental Delay: No Shingles: No Falls: No Blood Transfusions: No Blood Transfusion Reaction: No Anesthesia Reactions: No Organ Transplant: No Chemotherapy: No Radiation Therapy: No Hyperbaric Therapy: No MRSA: No VRSA: No Vancomycin-Resistant Enterococci: No Human Immunodeficiency Virus (HIV): No Chicken Pox: No Measles: No Mumps: Yes Rubella (Panamanian Measles): No Pertussis: No Clostridium Difficile: No Cancer: Yes History of Present Illness HPI Narrative This 58 year old male with history of diverticulosis/divericulitis s/p descending colectomy with transverse colon to rectum anastomosis in September [address] Figueroa, hypertension, COPD (no home O2 use), GERD, and substance use (methamphetamine and marijuana) who presented to the [facility] seeking general surgery referral for abdominal hernia repair, s/p colectomy and dafne removal. The hernia is uncomfortable and non-painful. He has followed up general surgeons Dr Figueroa and Dr Winchester who are unable to surgically repair the hernia, have advised patient seek referral for further management. Patient denies any complaints today, no pain associated with hernia, is able to pass bowel movements without difficulties. Currently <1 PPD, 2 PPD for 40+ years, no alcohol use, occasional marijuana and methamphetamine use. 11/04/24: Patient was seen and examined in [facility]. Patient came due to failure to get access and referral to general surgeon in [place]. He stated he is frustrated and has been struggling with getting referral for his large ventral hernia seen on the abdomen. Currently, patient denied any pain in the hernia and no signs of obstruction. He is able to pass regular bowel movements and denied any nausea or vomiting. He had a recent fall and ended up getting rib fracture and currently taking ibuprofen for pain management as needed. No gross deformity was seen on the examination. Patient was advised to take Protonix 40 mg along with ibuprofen to prevent formation of stomach ulcers. He was given referral to general surgeon, Dr. Armani Amador in [place] for evaluation of incisional hernia without obstruction or gangrene and documents were faxed to the clinic. Patient was advised to follow-up in the clinic as needed. Protonix was prescribed. No other refills were given. 11/18/24: Patient was seen and examined in the clinic. Patient was feeling well and reported to feel frustrated due to the process of denial for referral to general surgery for evaluation of his ventral hernia. He reported that he does not have any disturbance in the bowel movements or pain but he wants to get evaluated in have elective hernia reduction. Surgeon, Dr. Cao was contacted and he stated that we can do referral for his clinic and once insurance will do authorization he will be happy to see the patient. In case insurance declines we will try for another surgeon, Dr. Robni in time otherwise we will be trying out in [place] for other specialist. He was found to have mild wheezing on auscultation therefore albuterol inhaler was given as needed due to history of asthma. Follow-up in a week. Pending insurance authorization for referral. 12/10/24: The patient was seen and examined today. He presented for a follow-up visit; however, it was noted that no appointment had been scheduled with General Surgery. The patient informed us that insurance authorization was approved, and he had intended to schedule an appointment with Dr. Cao but has not yet done so, although he still plans to. The patient denied any pain, nausea, vomiting, constipation, or diarrhea. He reported feeling well overall, with his only concern being cosmetic discomfort. Patient again was advised to make an appointment [facility] and referral was send again. all questions and concers were adressed, we will see the patient in clinic after general surgery appointment to follow up with further plan. BP was on a upper side, however patient denies any Hx of HTN and mainly related it with anxiety related to doctors appointment. He denied any headache, vision changes, CP or SOB. He was advised to monitor BP at home, and contact us if it continues to run above 130-140. 12/25/24: Patient was seen and examined at clinic today. He was seen by Dr. Cao but no surgery was offered due to large size of hernia, he is here to get referral to another surgeon. He was seen by multiple surgeons in [place] but no one offered surgery because of size of hernia. We will refer him to [facility] for further evaluation for possible hernia repair. No other health complains today. He does not use meth anymore, smokes THC occasionally and trying to stop smoking tobacco. Patient care was discussed with attending physician Dr. Smallwood. Oumar Bagley MD, PGY 2. Disclaimer: This note was dictated by speech recognition. Minor errors in threshing operator may be present due to voice recognition software. Review of Systems Review of Systems Systems Reviewed: All systems reviewed, normal except as documented Objective/Exam Narrative Physical exam: GENERAL APPEARANCE: Patient is well-appearing male in no acute distress. HEENT: NC, AT. MMM. EOMI, clear conjunctiva, oropharynx clear. NECK: Supple without lymphadenopathy. No stiffness or restricted ROM. HEART: Sinus tachycardia with regular rhythm, normal S1/S2, no m/r/g LUNGS: CTAB, moving air well. Mild wheezing heard on ausc ABDOMEN: Soft, large ventral hernia seen on the abdomen with active bowel sounds. BACK: No CVAT, no obvious deformity. EXTREMITIES: Without cyanosis, clubbing or edema. NEUROLOGICAL: Grossly nonfocal. Alert and oriented, moving all 4 extremities. CN not formally tested but appear grossly intact. Observed to ambulate with normal gait. Skin: Warm and dry without any rash. Psych: Appropriate mood and affect Assessment & Plan Diagnosis / Problem List (1) Incisional hernia without obstruction or gangrene: Status: Acute Plan: This 58 year old male with history of diverticulosis/divericulitis s/p descending colectomy with transverse colon to rectum anastomosis in September [address] Figueroa, hypertension, COPD (no home O2 use), GERD, and substance use (methamphetamine and marijuana) came to the clinic due to failure to get evaluated by Surgeon, Examination revealed large bulging nontender ventral hernia with active bowel sounds seen on the abdomen. On last visit patient was referred to and was seen by him but no surgery was offered due to size of hernia. Referrals General surgery, [facility], Haider Ferrara MD. (2) Asthma: Status: Acute Qualifiers: Asthma severity: mild Asthma persistence: intermittent Asthma complication type: uncomplicated Qualified Code(s): J45.20 - Mild intermittent asthma, uncomplicated Assessment & Plan: ? Patient does have a history of chronic asthma and related to allergies. He is not in acute asthmatic state. ? Patient appeared to have mild wheezing on examination. Plan: Plan: ? Recommended to take albuterol inhaler as needed for mild wheezing. Orders: Orders CBC Auto Diff Post-Transfusion Today Comprehensive Metabolic Panel Today Referrals General surgery Office Procedures [facility] Level of Care Nursing/Assessment Patient Status: Established Patient Nursing Assessment/Reassessment: Medication Reconciliation, Update PMH in EMR and Vital Signs Coordination of Care: Complex Care and Chronic Disease 1-5, Consent,records obtained, informed consent, Education Simp Pt/Fam, Lab and Imaging orders, Results/Orders obtained and Staff clarify orders Established Patient Charge Established Patient Point Assignment: 105 Established Patient Point Charge: EP Level 3 (80-115)
== END 2024-12-25 15:04 | disposition home or self-care (01) ==
LOC: HODAHC 13:46
PROVIDERS: Supervising Provider Internal Medicine; Visit Provider Student in an Organized Health Care Education/Training Program
DX: K43.2 Incisional hernia without obstruction or gangrene (principal); I10 Essential (primary) hypertension; J44.9 Chronic obstructive pulmonary disease, unspecified; Z90.49 Acquired absence of other specified parts of digestive tract
CPT/HCPCS: 99213; G0463